=== PATIENT | female | born 1950 | race Caucasian/White ===

== ENCOUNTER 2019-06-27 10:25 | Outpatient (CLI) | payer MEDICARE, OTHER, SELFPAY ==
--- NOTE | 2019-06-27 10:32 | MM_ITS ---
WS: [id number] SCREENING DIGITAL MAMMOGRAM WITH CAD HISTORY: SCREENING COMPARISON: 04/17/2018, 04/06/2017. Bilateral CC and MLO views submitted. Computer aided detection analyzed. Breast composition: There are scattered areas of fibroglandular density. There is a new asymmetry kaykay suring 7 mm in the central RIGHT breast. This asymmetry is slightly irregular and just above the nipp le in the lateral projection. There is an additional 6 mm partially obscured nodule in the medial iliana ast. This nodule has been present on prior studies but slightly increased in size. RIGHT breast: Spot compression views (CC and MLO). True ML. Ultrasound to follow if abnormality persi sts. Spot compression views of 2 areas in the RIGHT breast. MM/[id number] IMPRESSION: BI-RADS: 0-Incomplete: Need additional imaging evaluation FOLLOW UP: Need Additional Imaging
== END 2019-06-27 10:26 | disposition home or self-care (01) ==
LOC: RADSHAW 10:30
PROVIDERS: Family Provider Family Medicine; PCP Family Medicine; Visit Provider Family Medicine
DX: Z12.31 Encounter for screening mammogram for malignant neoplasm of breast (principal)
CPT/HCPCS: 77067

== ENCOUNTER 2019-07-17 07:53 | Outpatient (CLI) | payer MEDICARE, OTHER, SELFPAY ==
--- NOTE | 2019-07-17 07:57 | US_ITS ---
WS: [id number] ADDITIONAL VIEWS RIGHT BREAST RIGHT breast ultrasound, limited HISTORY: RT BREAST ASYMMETRY / NODULE COMPARISON: 06/27/2019 and 04/17/2018 Compression views right CC and MLO projection. True ML also submitted. The ill-defined asymmetry at 12:00 resolves with additional views. The ovoid 8mm asymmetry of increas ed density near 3:00 persists. Ultrasound will be performed. RIGHT breast ultrasound, limited. Ultrasound directed to the 3:00. There is an ovoid hyperechoic nodule 6 cm from the nipple measuring 9 x 6 x 9 mm. Benign in appearance and probably represents a benign lipoma. US/US breast RT limited* [id number] IMPRESSION: BI-RADS: 2-Benign FOLLOW-UP: 1 Year Follow-up Patient to return to annual screening mammography. Screening mammography should be in June 2020.
== END 2019-07-17 07:54 | disposition home or self-care (01) ==
LOC: RADSHAW 07:56
PROVIDERS: Family Provider Family Medicine; PCP Family Medicine; Visit Provider Family Medicine
DX: N64.89 Other specified disorders of breast (principal)
CPT/HCPCS: 76642; 77065

== ENCOUNTER 2020-11-19 09:18 | Outpatient (CLI) | payer MEDICARE, OTHER, SELFPAY ==
--- NOTE | 2020-11-19 09:27 | MM_ITS ---
WS: [id number] Bilateral screening digital mammogram, 11/19/2020 Clinical Data: SCREENING Comparison: 07/17/2019, 06/27/2019, 04/17/2018, 04/06/2017, 11/23/2008. Findings: The breast parenchymal pattern shows fat replacement. No spiculated masses or clustered calcification s are seen. There are no secondary signs of carcinoma. There are numerous mole markers throughout the breasts. There are lymph nodes in both axilla. MM/[id number] Impression: 1. Negative bilateral mammogram unchanged. 2. Recommend annual screening mammograms. BIRADS: 1-Negative FOLLOW UP: 1 Year Follow-up The CAD amusement or recreation card checker was used.
== END 2020-11-19 09:19 | disposition home or self-care (01) ==
LOC: RADSHAW 09:23
PROVIDERS: Family Provider Family Medicine; PCP Family Medicine; Visit Provider Family Medicine
DX: Z12.31 Encounter for screening mammogram for malignant neoplasm of breast (principal)
CPT/HCPCS: 77067